=== PATIENT | male | born 1960 | race Caucasian/White ===

== ENCOUNTER 2019-08-12 17:52 | Inpatient (IN) | payer OTHER ==
[~2019-08-12] VITALS: Ht 154.9 cm; Wt 86.3 kg
[2019-08-12 18:55] LABS: MICROSCOPIC INDICATED
[2019-08-12 18:56] LABS: CULTURE INDICATED? YES
[2019-08-12] MEDS ORDERED: ACETAMINOPHEN 500 MG TABLET ONE (18:56)
[2019-08-12] MEDS ORDERED: KETOROLAC 30 MG/1 ML ONE (18:56)
[2019-08-12] MEDS ORDERED: ONDANSETRON 2MG/ML, 2ML ONE (18:56)
[2019-08-12] MEDS ORDERED: KETOROLAC 30 MG/1 ML IVPush ONE (19:00)
[2019-08-12] MEDS ORDERED: SODIUM CHLORIDE 0.9% 1,000ML IVBOLUS ONE (19:00)
[2019-08-12] MEDS ORDERED: ACETAMINOPHEN 500 MG TABLET PO ONE (19:00)
[2019-08-12] MEDS ORDERED: ONDANSETRON 2MG/ML, 2ML IVPush PRN (19:00)
[2019-08-12 19:13] LABS: RAPID INFLUENZA A Negative (Negative); RAPID INFLUENZA B Negative (Negative)
[2019-08-12] MEDS ORDERED: CEFTRIAXONE PMX 1GM/50ML 50 ML ONE (19:15)
[2019-08-12 19:19] LABS: MEAN CORPUSCULAR HEMOGLOBIN 29.4 pg (27.5-34.5); MEAN CORPUSCULAR HGB CONC 34.1 g/dL (33.2-36.2); MEAN CORPUSCULAR VOLUME 86.2 fL (81-97); MEAN PLATELET VOLUME 9.2 fL (7.4-10.4); PLATELET COUNT 261 x10^3/uL (130-400); RED BLOOD COUNT 5.23 x10^6/uL (4.38-5.82)
[2019-08-12 19:27] LABS: ALANINE AMINOTRANSFERASE 22 U/L (12-78); ALBUMIN 3.6 g/dL (3.4-5.0); ANION GAP 10 mmol/L (5-15); CALCIUM 8.7 mg/dL (8.5-10.1); CHLORIDE 98 mmol/L (98-107)
[2019-08-12 19:30] LABS: ALKALINE PHOSPHATASE 113 U/L (45-117); BILIRUBIN,TOTAL 2.8 mg/dL (0.2-1.0); CREATININE 1.13 mg/dL (0.7-1.3); TOTAL PROTEIN 8.3 g/dL (6.4-8.2)
[2019-08-12] MEDS ORDERED: CEFTRIAXONE PMX 1GM/50ML 50 ML IV ONE (19:30)
[2019-08-12 19:48] LABS: BASOPHILS # (AUTO) 0.04 x10^3/uL (0-0.1); BASOPHILS % (AUTO) 0 % (0-1); EOSINOPHILS # (AUTO) 0.09 x10^3/uL (0-0.4); EOSINOPHILS % (AUTO) 0 % (1-7); LYMPHOCYTES # (AUTO) 1.49 x10^3/uL (1-3.4); LYMPHOCYTES % (AUTO) 7 % (22-44); MD SCAN; MONOCYTES # (AUTO) 0.64 x10^3/uL (0.2-0.8); MONOCYTES % (AUTO) 3 % (2-9); NEUTROPHILS % (AUTO) 89 % (42-75)
[2019-08-12] MEDS ORDERED: KETOROLAC 30 MG/1 ML IV PRN (21:00)
[2019-08-12] MEDS ORDERED: ONDANSETRON ODT 4 MG PO PRN (21:00)
[2019-08-12] MEDS ORDERED: POLYETHYLENE GLYCOL 17 GM PACKET PO PRN (21:00)
[2019-08-12] MEDS ORDERED: BISACODYL 10 MG SUPP PR PRN (21:00)
[2019-08-12] MEDS: SODIUM CHLORIDE 0.9% 1,000 ML IV SCH (21:57)
[2019-08-12] MEDS ORDERED: LISI-420 PO (22:15)
[2019-08-12] MEDS ORDERED: METF10007 PO (22:16)
[2019-08-12] MEDS: HEPARIN 5,000 UNITS/ML, 1ML SQ SCH (22:43)
[2019-08-12] MEDS: INSULIN LISPRO 100 UNITS/ML, PEN SQ-INSULIN SCH (22:43)
[2019-08-12 23:00] VITALS: BP 100/63
[2019-08-12] MEDS: metFORMIN 500 MG TABLET PO SCH (23:28)
[2019-08-13 01:09] VITALS: BP 100/68
[2019-08-13] MEDS: SODIUM CHLORIDE 0.9% 1,000 ML IV SCH ×2 (04:52→12:06)
[2019-08-13 05:32] LABS: BASOPHILS # (AUTO) 0.04 x10^3/uL (0-0.1); BASOPHILS % (AUTO) 0 % (0-1); EOSINOPHILS # (AUTO) 0.09 x10^3/uL (0-0.4); EOSINOPHILS % (AUTO) 1 % (1-7); LYMPHOCYTES # (AUTO) 2.64 x10^3/uL (1-3.4); LYMPHOCYTES % (AUTO) 15 % (22-44); MD NO; MEAN CORPUSCULAR HEMOGLOBIN 29.5 pg (27.5-34.5); MEAN CORPUSCULAR VOLUME 86.9 fL (81-97); MEAN PLATELET VOLUME 8.6 fL (7.4-10.4); MONOCYTES # (AUTO) 1.09 x10^3/uL (0.2-0.8); MONOCYTES % (AUTO) 6 % (2-9); NEUTROPHILS # (AUTO) 13.86 x10^3/uL (1.8-6.8); NEUTROPHILS % (AUTO) 78 % (42-75); PLATELET COUNT 196 x10^3/uL (130-400); RED BLOOD COUNT 4.47 x10^6/uL (4.38-5.82)
[2019-08-13 05:34] LABS: ANION GAP 5 mmol/L (5-15); CALCIUM 7.8 mg/dL (8.5-10.1); CHLORIDE 104 mmol/L (98-107); CREATININE 0.95 mg/dL (0.7-1.3)
[2019-08-13] MEDS: HEPARIN 5,000 UNITS/ML, 1ML SQ SCH ×3 (05:48→22:54)
[2019-08-13 07:00] VITALS: BP 107/70
[2019-08-13] MEDS: INSULIN LISPRO 100 UNITS/ML, PEN SQ-INSULIN SCH ×4 (08:25→21:31)
[2019-08-13] MEDS: SENNA/DOCUSATE TABLET PO SCH (08:26)
[2019-08-13] MEDS: metFORMIN 500 MG TABLET PO SCH ×2 (08:26→17:05)
[2019-08-13 12:34] VITALS: BP 108/64
[2019-08-13] MEDS: ACETAMINOPHEN 325 MG TABLET PO PRN ×2 (15:26→21:31)
[2019-08-13 18:39] VITALS: BP 125/76
[2019-08-13] MEDS ORDERED: CEFTRIAXONE PMX 1GM/50ML 50 ML IV SCH (19:00)
[2019-08-13 19:07] VITALS: BP 114/73
[2019-08-13] MEDS: INSULIN GLARGINE 100 UNITS/ML, PEN SQ-INSULIN SCH (22:02)
[2019-08-14 01:53] VITALS: BP 103/66
[2019-08-14 05:27] VITALS: BP 122/77
[2019-08-14] MEDS: ONDANSETRON 2MG/ML, 2ML IVPush PRN ×3 (05:46→16:35)
[2019-08-14] MEDS: HEPARIN 5,000 UNITS/ML, 1ML SQ SCH ×3 (05:50→21:33)
[2019-08-14 07:20] VITALS: BP 123/71
[2019-08-14] MEDS: INSULIN LISPRO 100 UNITS/ML, PEN SQ-INSULIN SCH ×4 (08:26→20:07)
[2019-08-14] MEDS: SENNA/DOCUSATE TABLET PO SCH (08:27)
[2019-08-14] MEDS: metFORMIN 500 MG TABLET PO SCH ×2 (08:27→16:29)
[2019-08-14 09:08] LABS: BASOPHILS # (AUTO) 0.03 x10^3/uL (0-0.1); BASOPHILS % (AUTO) 0 % (0-1); EOSINOPHILS # (AUTO) 0.05 x10^3/uL (0-0.4); EOSINOPHILS % (AUTO) 0 % (1-7); LYMPHOCYTES # (AUTO) 2.69 x10^3/uL (1-3.4); LYMPHOCYTES % (AUTO) 24 % (22-44); MD NO; MEAN CORPUSCULAR HEMOGLOBIN 29.2 pg (27.5-34.5); MEAN CORPUSCULAR HGB CONC 33.4 g/dL (33.2-36.2); MEAN CORPUSCULAR VOLUME 87.5 fL (81-97); MEAN PLATELET VOLUME 8.6 fL (7.4-10.4); MONOCYTES # (AUTO) 0.61 x10^3/uL (0.2-0.8); MONOCYTES % (AUTO) 5 % (2-9); NEUTROPHILS % (AUTO) 70 % (42-75); PLATELET COUNT 226 x10^3/uL (130-400); RED BLOOD COUNT 4.63 x10^6/uL (4.38-5.82); RED CELL DISTRIBUTION WIDTH 12.6 % (9.4-14.8)
[2019-08-14] MEDS: SIMETHICONE 80 MG CHEW TAB PO PRN ×2 (09:11→16:35)
[2019-08-14 09:12] LABS: ANION GAP 8 mmol/L (5-15); CALCIUM 8.3 mg/dL (8.5-10.1); CHLORIDE 104 mmol/L (98-107)
[2019-08-14] MEDS: KETOROLAC 30 MG/1 ML IV PRN ×2 (09:12→17:36)
[2019-08-14 09:48] VITALS: BP 123/72
[2019-08-14] MEDS ORDERED: PANTOPRAZOLE 40 MG IV IVPush SCH (10:00)
[2019-08-14 13:59] VITALS: BP 128/76
[2019-08-14] MEDS: SULFAMETH./TRIMETHOPRIM DS 800MG/160MG TABLET PO SCH (17:30)
[2019-08-14 19:07] VITALS: BP 109/76
[2019-08-14] MEDS: INSULIN GLARGINE 100 UNITS/ML, PEN SQ-INSULIN SCH (21:33)
[2019-08-15 00:19] VITALS: BP 116/68
[2019-08-15] MEDS: KETOROLAC 30 MG/1 ML IV PRN (00:36)
[2019-08-15] MEDS: ONDANSETRON 2MG/ML, 2ML IVPush PRN ×2 (00:36→05:36)
[2019-08-15] MEDS: SULFAMETH./TRIMETHOPRIM DS 800MG/160MG TABLET PO SCH (00:36)
[2019-08-15] MEDS: SIMETHICONE 80 MG CHEW TAB PO PRN (00:37)
[2019-08-15 04:51] LABS: BASOPHILS # (AUTO) 0.04 x10^3/uL (0-0.1); BASOPHILS % (AUTO) 0 % (0-1); EOSINOPHILS # (AUTO) 0.06 x10^3/uL (0-0.4); EOSINOPHILS % (AUTO) 1 % (1-7); LYMPHOCYTES # (AUTO) 2.76 x10^3/uL (1-3.4); LYMPHOCYTES % (AUTO) 32 % (22-44); MD NO; MEAN CORPUSCULAR HEMOGLOBIN 29.5 pg (27.5-34.5); MEAN CORPUSCULAR HGB CONC 34.1 g/dL (33.2-36.2); MEAN CORPUSCULAR VOLUME 86.5 fL (81-97); MEAN PLATELET VOLUME 8.4 fL (7.4-10.4); MONOCYTES # (AUTO) 0.58 x10^3/uL (0.2-0.8); MONOCYTES % (AUTO) 7 % (2-9); NEUTROPHILS # (AUTO) 5.31 x10^3/uL (1.8-6.8); NEUTROPHILS % (AUTO) 61 % (42-75); PLATELET COUNT 245 x10^3/uL (130-400); RED CELL DISTRIBUTION WIDTH 12.4 % (9.4-14.8)
[2019-08-15 04:58] LABS: ANION GAP 4 mmol/L (5-15); CALCIUM 8.5 mg/dL (8.5-10.1); CHLORIDE 106 mmol/L (98-107)
[2019-08-15 05:02] LABS: CREATININE 0.87 mg/dL (0.7-1.3)
[2019-08-15] MEDS: HEPARIN 5,000 UNITS/ML, 1ML SQ SCH ×2 (05:36→14:00)
[2019-08-15] MEDS ORDERED: METOCLOPRAMIDE 5 MG/ML, 2ML IVPush PRN (07:00)
[2019-08-15] MEDS: INSULIN LISPRO 100 UNITS/ML, PEN SQ-INSULIN SCH ×3 (07:00→16:00)
[2019-08-15] MEDS ORDERED: ERTAPENEM 1 GM in SODIUM CHLORIDE 0.9% 50 ML IV SCH (07:00)
[2019-08-15 07:51] VITALS: BP 146/83
[2019-08-15] MEDS: metFORMIN 500 MG TABLET PO SCH ×2 (08:25→16:54)
[2019-08-15] MEDS: SENNA/DOCUSATE TABLET PO SCH (08:25)
[2019-08-15] MEDS ORDERED: PANTOPROZOLE 40MG TABLET PO SCH (09:00)
[2019-08-15 15:18] VITALS: BP 151/78
[2019-08-15] MEDS ORDERED: METO5TAB57 PO (16:07)
[2019-08-15] MEDS ORDERED: INSU100I13 SQ-INSULIN (16:07)
[2019-08-15] MEDS ORDERED: ONDA4TAB13 PO (16:07)
[2019-08-15] MEDS ORDERED: FOSF3PAC PO (16:10)
== END 2019-08-15 18:53 | disposition home or self-care (01) | DRG 872 ==
LOC: ED 19:20 → EDIP 20:22 → 3N 22:00
PROVIDERS: ADMIT Family Medicine; ATTEND Hospitalist
DX: A41.9 Sepsis, unspecified organism (principal); E87.1 Hypo-osmolality and hyponatremia; N10 Acute pyelonephritis; Z16.12 Extended spectrum beta lactamase (ESBL) resistance; B96.20 Unspecified Escherichia coli [E. coli] as the cause of diseases classified elsewhere; E11.65 Type 2 diabetes mellitus with hyperglycemia; Z87.891 Personal history of nicotine dependence
CPT/HCPCS: 36415; 71045; 74021; 80048; 80053; 81001; 82962; 83036; 83605; 84145; 85025; 87040; 87077; 87086; 87184; 87186; 87400; 93005; 96365; 96375; G0378; J0696; J1335; J1644; J1885; J2405; Q0162; C9113; J1815; J7030